=== PATIENT | female | born 1955 | race African-American/Black ===

== ENCOUNTER 2017-03-11 00:24 | Emergency (ER) | payer OTHER ==
[~2017-03-11] VITALS: Ht 167.6 cm; Wt 72.6 kg
--- NOTE | 2017-03-11 00:30 | NUR ---
BB RA FROM [address] GOLD MANNOR; EPIGASTRIC, SHARP LIKE PAIN, NON RADIATING. TP AMBULATED TO ER BED, SKIN WARM AND DRY, RR EVEN AND UNLABORED. AWAITING ORDERS FROM PROVIDER
[2017-03-11] MEDS ORDERED: ONDANSETRON HCL/PF 4 MG/2 ML VIAL IVP ONE (01:00)
[2017-03-11] MEDS ORDERED: MORPHINE SULFATE INJ 2 MG/ML DISP.SYRIN IV ONE (01:00)
--- NOTE | 2017-03-11 01:00 | NUR ---
DISTILLERY SUPERVISOR AT BED SIDE FOR BLOOD DRAW
[2017-03-11 01:11] LABS: BASOPHILS % (AUTO) 0.5 % (0.0-2.0); EOSINOPHILS # (AUTO) 0.1 /CMM (0.0-0.7); EOSINOPHILS % (AUTO) 0.8 % (0.0-6.0); HEMATOCRIT 51 % (33-45); LYMPHOCYTES # (AUTO) 2.7 /CMM (0.8-4.8); LYMPHOCYTES % (AUTO) 37.3 % (20.0-44.0); MEAN CORPUSCULAR HEMOGLOBIN 32 PG (26.0-33.0); MEAN CORPUSCULAR HGB CONC 34 g/dl (31.0-36.0); MEAN CORPUSCULAR VOLUME 95 fL (82-100); MONOCYTES # (AUTO) 0.5 /CMM (0.1-1.30); MONOCYTES % (AUTO) 6.6 % (2.0-12.0); NEUTROPHILS # (AUTO) 3.9 /CMM (1.8-8.9); NEUTROPHILS % (AUTO) 54.8 % (43.0-81.0); PLATELET COUNT (AUTO) 203 /CMM (150-450); RED BLOOD CELL COUNT(AUTO) 5.35 MIL/uL (4.0-5.2); WHITE BLOOD COUNT (AUTO) 7.2 K/uL (4.3-11.0)
[2017-03-11 01:21] LABS: CALCIUM, SERUM 9.2 mg/dL (8.5-10.1); CREATININE 0.8 mg/dL (0.6-1.3); POTASSIUM 3.9 mmol/L (3.5-5.1)
[2017-03-11] MEDS ORDERED: MORPHINE SULFATE INJ 2 MG/ML DISP.SYRIN ONE (01:25)
[2017-03-11 01:27] LABS: INR 1.04 (0.87-1.13); PROTHROMBIN TIME 11.1 SECS (9.5-12.7)
[2017-03-11] MEDS ORDERED: MORPHINE SULFATE INJ 4 MG/ML DISP.SYRIN ONE (01:27)
[2017-03-11 01:30] LABS: ALBUMIN 3.4 g/dL (3.4-5.0); BILIRUBIN,DIRECT 0.1 mg/dL (0.0-0.2); BILIRUBIN,TOTAL 0.3 mg/dL (0.2-1.0); TOTAL PROTEIN, SERUM 7.6 g/dL (6.4-8.2)
[2017-03-11] MEDS ORDERED: IV NS 0.9% 250 ML IV ONE (02:01)
[2017-03-11] MEDS ORDERED: IOHEXOL-350 100 ML VIAL IV ONE (02:01)
[2017-03-11] MEDS ORDERED: ONDANSETRON HCL/PF 4 MG/2 ML VIAL ONE (02:14)
--- NOTE | 2017-03-11 02:30 | NUR ---
PT TRANASPORTED TO CT VIA GURNEY BY RADIOLOGY
--- NOTE | 2017-03-11 04:07 | NUR ---
called facility, spoke with johanne
[2017-03-11 04:43] VITALS: BP 133/87
== END 2017-03-11 04:43 | disposition home or self-care (01) ==
LOC: ER 00:25
DX: R10.13 Epigastric pain (principal); F29 Unspecified psychosis not due to a substance or known physiological condition; F32.9 Major depressive disorder, single episode, unspecified; Z88.0 Allergy status to penicillin; Z90.49 Acquired absence of other specified parts of digestive tract
CPT/HCPCS: 36415; 80048-TC; 80076-TC; 83690-TC; 85025-TC; 85730-TC; A4606; J2270; J2405; J7030; J7050; Q9967; Z7610

== ENCOUNTER 2019-08-12 11:04 | Inpatient (IN) | payer MEDICARE, OTHER ==
[~2019-08-12] VITALS: Ht 167.6 cm; Wt 76.2 kg
--- NOTE | 2019-08-12 11:24 | NUR ---
BIB [facility] AMBULANCE TO ER, C/O SOB - SHE IS FROM [facility]. RA SATS -90 %; 96 % ON NC-3 LPM. PT HAS DIFFICULTY SPEAKING A RESULT. NO APPARENT DISTRESS. DENIES PAIN, DIZZINESS, WEAKNESS. ON MONITOR AND READY FOR EVAL.
[2019-08-12] MEDS ORDERED: IV NS 0.9% 1,000 ML BAG IV ONE ×2 (11:30→13:00)
--- NOTE | 2019-08-12 11:54 | NUR ---
PT TAKEN TO RADIOLOGY VIA IVAN
--- NOTE | 2019-08-12 12:03 | NUR ---
BACK FROM RADIOLOGY. CARY REID.
[2019-08-12 12:24] LABS: BASOPHILS % (AUTO) 0.5 % (0.0-2.0); HEMATOCRIT 51 % (33-45); HEMOGLOBIN 16.3 g/dL (11.5-14.8); LYMPHOCYTES # (AUTO) 0.9 /CMM (0.8-4.8); LYMPHOCYTES % (AUTO) 18.1 % (20.0-44.0); MEAN CORPUSCULAR HGB CONC 32 g/dl (31.0-36.0); MEAN CORPUSCULAR VOLUME 101 fL (82-100); MONOCYTES # (AUTO) 0.5 /CMM (0.1-1.30); MONOCYTES % (AUTO) 9.2 % (2.0-12.0); NEUTROPHILS # (AUTO) 3.6 /CMM (1.8-8.9); NEUTROPHILS % (AUTO) 72.2 % (43.0-81.0); PLATELET COUNT (AUTO) 233 /CMM (150-450); RED BLOOD CELL COUNT(AUTO) 5.06 MIL/uL (4.0-5.2); WHITE BLOOD COUNT (AUTO) 4.9 K/uL (4.3-11.0)
--- NOTE | 2019-08-12 12:30 | NUR ---
URINE COLLECTED VIA STRAIGHT CATH PER PROTOCOL AND SENT TO STAT LAB. PT CARY WELL
[2019-08-12 12:36] LABS: CALCIUM, SERUM 10.4 mg/dL (8.5-10.1); CARBON DIOXIDE 15 mmol/L (21-32); CHLORIDE 85 mmol/L (98-107); CREATININE 1.9 mg/dL (0.6-1.3); POTASSIUM 5.1 mmol/L (3.5-5.1); SALICYLATE 12.4 mg/dL (2.8-20.0); SODIUM SERUM 130 mmol/L (136-145); UREA NITROGEN, BLOOD 20 mg/dL (7-18)
[2019-08-12 12:37] LABS: ACETAMINOPHEN 0 ug/ml (10-30); ALCOHOL, BLOOD < 3 mg/dL (0-0)
[2019-08-12 12:40] LABS: APPEARANCE,URINE Clear (CLEAR); BILIRUBIN,URINE SMALL (NEGATIVE); BLOOD, URINE Trace-lysed Ery/uL (NEGATIVE); COLOR,URINE Yellow (YELLOW); KETONES,URINE >=160 (NEGATIVE); LEUKOCYTE ESTERASE ,URINE Negative (NEGATIVE); NITRITE, URINE Negative (NEGATIVE); PROTEIN,URINE Negative (NEGATIVE); UGLUCOSE 500 MG/DL mg/dL (NEGATIVE); UROBILINOGEN,URINE 0.2 EU/dL (0.2)
[2019-08-12 12:43] LABS: BACTERIA,URINE Few /HPF (None Seen); SQUAMOUS EPITHELIAL CELL,UR Few /HPF (None Seen)
[2019-08-12 12:44] LABS: URINE AMORPHOUS URATE Few /HPF (None Seen)
[2019-08-12 12:47] LABS: SERUM AMMONIA 14 umol/L (11-32)
[2019-08-12 12:50] LABS: ALANINE AMINOTRANSFERASE 19 U/L (12-78); ALBUMIN 3.5 g/dL (3.4-5.0); ALKALINE PHOSPHATASE 197 U/L (46-116); ASPARTATE AMINOTRANSFERASE 11 U/L (15-37); B-TYPE NATRIURETIC PEPTIDE 72 PG/ML (0-125); BILIRUBIN,DIRECT 0.3 mg/dL (0.0-0.2); BILIRUBIN,TOTAL 0.9 mg/dL (0.2-1.0); TOTAL PROTEIN, SERUM 8.7 g/dL (6.4-8.2)
[2019-08-12] MEDS ORDERED: RISP0.2515 PO (12:56)
[2019-08-12] MEDS ORDERED: MONT10TA22 PO (12:56)
[2019-08-12] MEDS ORDERED: ATOR40TA PO (12:56)
[2019-08-12] MEDS ORDERED: DIVA-78 PO (12:56)
[2019-08-12] MEDS ORDERED: CELE-85 PO (12:56)
[2019-08-12] MEDS ORDERED: OLAN15TA3 PO (12:56)
[2019-08-12] MEDS ORDERED: GABA-532 PO (12:56)
[2019-08-12] MEDS ORDERED: ESCI10TA PO (12:56)
[2019-08-12] MEDS ORDERED: BUPR150T10 PO (12:56)
[2019-08-12] MEDS ORDERED: METF500T20 PO (12:56)
[2019-08-12] MEDS ORDERED: ASPI-1152 PO (12:56)
[2019-08-12] MEDS ORDERED: ERGO500014 PO (12:56)
[2019-08-12 12:57] LABS: GLUCOSE 974 mg/dL (74-106)
[2019-08-12] MEDS ORDERED: ACET-868 PO (12:57)
[2019-08-12] MEDS ORDERED: ALBU18HF2 IH (12:57)
[2019-08-12] MEDS ORDERED: DIPH50CA38 PO (12:57)
[2019-08-12] MEDS ORDERED: LORA-259 PO (12:58)
[2019-08-12] MEDS ORDERED: ZOLP5TAB8 PO (12:58)
[2019-08-12] MEDS ORDERED: HYDR-4384 PO (12:58)
[2019-08-12] MEDS ORDERED: INSULIN REGULAR, HUMAN 100 UNIT/ML 10 ML VIAL IV ONE (13:00)
--- NOTE | 2019-08-12 13:29 | NUR ---
PT REFUSED DRAWING OF BLOOD CULTURES. MD WHEAT
[2019-08-12] MEDS ORDERED: INSULIN REGULAR, HUMAN 100 UNIT/ML 10 ML VIAL ONE (13:33)
[2019-08-12 13:46] LABS: THYROID STIMULATING HORMONE 0.624 uIU/mL (0.358-3.74)
--- NOTE | 2019-08-12 13:52 | NUR ---
UPDATED STEPH PRINTING SALES REPRESENTATIVE. SHE WILL CALL BACK
--- NOTE | 2019-08-12 14:40 | NUR ---
IV PULLED OUT FROM PT, PT UNABLE TO TELL WHAT HAPPENED. RE-INSERTED NEW IV. PT CARY WELL.
[2019-08-12] MEDS ORDERED: ZOLPIDEM TARTRATE 5 MG TABLET PO PRN (16:00)
[2019-08-12] MEDS ORDERED: HYDROCODONE/APAP 5/325MG 1 EACH TABLET PO PRN (16:00)
[2019-08-12] MEDS ORDERED: ACETAMINOPHEN 325 MG TABLET PO PRN (16:00)
[2019-08-12] MEDS ORDERED: diphenhydrAMINE HCL 50 MG CAPSULE PO PRN (16:00)
[2019-08-12] MEDS ORDERED: LORAZEPAM 1 MG TABLET PO PRN (16:00)
[2019-08-12] MEDS ORDERED: *INSULIN REGULAR(HUMULIN R)HUM 100 UNIT/ML VIAL SQ PRN (16:30)
[2019-08-12] MEDS ORDERED: DEXTROSE 50%-WATER 50 ML DISP.SYRIN IV PRN (16:30)
--- NOTE | 2019-08-12 16:44 | NUR ---
Patient is resting comfortably in bed with eyes closed. Easily aroused. VSS
--- NOTE | 2019-08-12 18:00 | NUR ---
PT SLEEPING COMFORTABLY IN BED. NO COMPLAINTS AT THIS TIME. VSS. WILL CONT TO MONITOR.
--- NOTE | 2019-08-12 18:25 | NUR ---
PER ADMITTING [place] ASSISTANT NEWS DIRECTOR SAYS NO BEDS AVAILABLE, AUTH TO ADMIT PT UNDER DR CAREY
[2019-08-12] MEDS ORDERED: ALBUTEROL FS 2.5 MG/3 ML VIAL.NEB NEB PRN (19:30)
--- NOTE | 2019-08-12 19:47 | NUR ---
BED ASSIGNMENT 114-2
[2019-08-12 20:00] VITALS: BP 169/98
--- NOTE | 2019-08-12 20:27 | NUR ---
REPORT GIVEN TO HERMINIO RODRÍGUEZ FOR 114-2, CHERRY ADMITTING
--- NOTE | 2019-08-12 20:45 | NUR ---
RN NOE NOTES RECEIVED CALL FROM PHARMACY WITH INSTRUCTION THAT ITS OKAY TO GIVE ROCEPHIN WITH PRECAUTION EVEN THOUGH THE PT HAVE ALLERGY ON PENICILLIN AND WAS AWARE
--- NOTE | 2019-08-12 20:52 | NUR ---
PT TRANSFERRED TO UNIT PER [facility]
[2019-08-12] MEDS: INSULIN GLARGINE, 100 UNIT/ML CARTRIDGE SQ ONE ×2 (21:00→21:57)
--- NOTE | 2019-08-12 21:00 | NUR ---
RN NOE ADMISSION NOTES ADMITTED MS BARTOLO VILLAR FROM ER VIA [facility] AWAKE CONVERSING WITH A LITTLE CONFUSION NOTED ON O2 VIA NASAL CANNULA TOLERATED WELL WITH O2 SAT 97%, SAFELY TRANSFER FROM [facility] TO BED, V/S CHECKED WNL, HEAD TO TOE ASSESSMENT DONE WITH EXCORIATION ON ABDOMINAL FOLD NOTED, GENERALIZED DRYNESS NOTED, PERICARE AND BED BATH DONE BY CUTTER BARREL DRUM, NO PAIN NOTED, PT IS COOPERATIVE, NEEDS ATTENDED WILL CONT TO MONITOR
--- NOTE | 2019-08-12 21:25 | NUR ---
2124 DR CAREY MADE AWARE OF BS 539MG/DL WITH ORDER TO GIVE LANTUS 30 UNITS NOW AND TO START PATIENT ON DIABETIC DIET. PATIENT AWAKE, AND VERBALLY RESPONSIVE. NO SIGNS OF HYPERGLYCEMIA NOTED. ORDERS NOTED AND CARRIED OUT.
[2019-08-12] MEDS: ENOXAPARIN SODIUM 30 MG/0.3 ML DISP.SYRIN SQ SCH (21:55)
[2019-08-12] MEDS ORDERED: INSULIN GLARGINE, 100 UNIT/ML CARTRIDGE SQ SCH (22:00)
[2019-08-12] MEDS: IV 1/2NS 1000 ML 1,000 ML IV PRN (22:15)
[2019-08-12] MEDS: AZITHROMYCIN 500 MG in IV D5W 250 ML IV SCH (22:26)
[2019-08-12] MEDS: ATORVASTATIN 40 MG TABLET PO SCH (22:27)
[2019-08-12] MEDS: OLANZAPINE 5 MG TABLET PO SCH (22:27)
[2019-08-12] MEDS: BLOOD SUGAR DIAGNOSTIC 1 EACH STRIP VI SCH ×2 (23:04→23:05)
[2019-08-12] MEDS: CEFTRIAXONE 1 G in IV D5W 50 ML IV SCH (23:04)
[2019-08-12] MEDS: buPROPion SR 150 MG TABLET.ER PO SCH (23:08)
[2019-08-12] MEDS: risperiDONE 1 MG TABLET PO SCH (23:09)
[2019-08-12] MEDS: DIVALPROEX SODIUM 500 MG TABLET.DR PO SCH (23:10)
[2019-08-12] MEDS: GABAPENTIN 100 MG CAPSULE PO SCH (23:14)
--- NOTE | 2019-08-12 23:25 | NUR ---
RN NOE NOTES RECHECKED BLOOD SUGAR WITH [address] CAREY WITH ORDER NO GLUCOSE CHECKED TONIGHT AND LANTUS 30 UNITS SQ Q12
[2019-08-13] VITALS (9 sets, daily range): BP systolic 111–152; BP diastolic 63–92
[2019-08-13 07:28] LABS: BASOPHILS % (AUTO) 0.6 % (0.0-2.0); EOSINOPHILS % (AUTO) 0.1 % (0.0-6.0); HEMATOCRIT 45 % (33-45); HEMOGLOBIN 15.1 g/dL (11.5-14.8); LYMPHOCYTES % (AUTO) 21.1 % (20.0-44.0); MEAN CORPUSCULAR HGB CONC 33 g/dl (31.0-36.0); MEAN CORPUSCULAR VOLUME 95 fL (82-100); MONOCYTES # (AUTO) 0.6 /CMM (0.1-1.30); MONOCYTES % (AUTO) 12.4 % (2.0-12.0); NEUTROPHILS # (AUTO) 3.2 /CMM (1.8-8.9); NEUTROPHILS % (AUTO) 65.8 % (43.0-81.0); PLATELET COUNT (AUTO) 195 /CMM (150-450); RED BLOOD CELL COUNT(AUTO) 4.76 MIL/uL (4.0-5.2); WHITE BLOOD COUNT (AUTO) 4.9 K/uL (4.3-11.0)
--- NOTE | 2019-08-13 07:29 | NUR ---
SENIOR DIRECTOR MARKETING CLOSING NOTES PT ON STABLE CONDITION SLEEPING NO SIGN AND SYMPTOMS OF ANY DISTRESS ON O2 2L VIA NC, NO PAIN NOTED, ALL NEEDS ATTENDED ON TELE MONITOR READING SR 80'S-90'S SAFETY MEASURE MAINTAINED BED ON LOWEST POSITION SIDE RAILS UP X2 CALL LIGHT WITHIN REACH, WILL ENDORSED TO AM SHIFT NURSE
--- NOTE | 2019-08-13 07:35 | NUR ---
CAKE STRIPPER NOTE RECEIVED REPORT FROM PM NURSE.PATIENTAXOX4.NO SOB NO DISTRESS NOTED WITH O2.ON TELE MONITOR SR WITHBBB HR 76.SAFETY AND ASPIRATION MEASURES IN PLACE.WILL CONTINUE TO MONITOR.
[2019-08-13 07:37] LABS: CALCIUM, SERUM 8.5 mg/dL (8.5-10.1); CREATININE 1.5 mg/dL (0.6-1.3); MAGNESIUM 2.1 mg/dL (1.8-2.4); POTASSIUM 3.9 mmol/L (3.5-5.1)
[2019-08-13 07:51] LABS: THYROID STIMULATING HORMONE 0.598 uIU/mL (0.358-3.74)
[2019-08-13] MEDS: BLOOD SUGAR DIAGNOSTIC 1 EACH STRIP VI SCH ×4 (07:57→21:20)
[2019-08-13] MEDS: INSULIN REGULAR, HUMAN 100 UNIT/ML 3 ML VIAL SQ PRN ×4 (08:44→21:15)
[2019-08-13] MEDS: risperiDONE 1 MG TABLET PO SCH ×2 (08:48→16:23)
[2019-08-13] MEDS: buPROPion SR 150 MG TABLET.ER PO SCH ×2 (08:48→16:23)
[2019-08-13] MEDS: MONTELUKAST SODIUM (10MG) 10 MG TABLET PO SCH (08:48)
[2019-08-13] MEDS: INSULIN GLARGINE, 100 UNIT/ML CARTRIDGE SQ SCH ×2 (08:48→21:14)
[2019-08-13] MEDS: ESCITALOPRAM OXALATE (10 MG) 10 MG TABLET PO SCH (08:48)
[2019-08-13] MEDS: CELECOXIB 100 MG CAPSULE PO SCH (08:48)
[2019-08-13] MEDS: ASPIRIN EC 81 MG TABLET.DR PO SCH (08:48)
[2019-08-13] MEDS: DIVALPROEX SODIUM 500 MG TABLET.DR PO SCH ×2 (08:49→16:23)
[2019-08-13] MEDS: GABAPENTIN 100 MG CAPSULE PO SCH ×3 (08:49→16:23)
[2019-08-13] MEDS ORDERED: METFORMIN XR 500 MG TAB.SR.24H PO SCH (09:00)
[2019-08-13] MEDS: METFORMIN XR 500 MG TAB.SR.24H PO SCH ×2 (09:00→11:09)
[2019-08-13] MEDS ORDERED: ENOXAPARIN SODIUM 40 MG/0.4 ML DISP.SYRIN SQ SCH (09:00)
[2019-08-13] MEDS: IV 1/2NS 1000 ML 1,000 ML IV PRN ×2 (09:05→18:41)
[2019-08-13] MEDS ORDERED: INSULIN GLARGINE, 100 UNIT/ML CARTRIDGE SQ ONE (12:30)
--- NOTE | 2019-08-13 13:00 | NUR ---
CONDOMINIUM MANAGER NOTE GOT NEW ORDER FROM FOR 20 UNIT LANTUSX1 FOR BS 411.
--- NOTE | 2019-08-13 19:15 | NUR ---
HOUSING PROJECT MANAGER OPENING NOTES RECEIVED PT ON BED ASLEEP WITH O2 2L VIA NC SATURATING WELL, NO SIGN AND SYMPTOMS OF DISTRESS NO PAIN NOTED, WITH ONGOING IVF OF 1/2 NS VIA L ARM IV GAUGE 20 INFUSING WELL NO INFILTRATION OF SWELLING NOTED SAFETY MEASURE MAINTAINED BED ON LOWEST POSSIBLE POSITION, SIDE RAILS UP X3 CALL LIGHT WITHIN REACH WILL CONT. TO MONITOR THE PT
--- NOTE | 2019-08-13 19:42 | NUR ---
telecommunicator supervisor note endorsed to pm nurse for filemon.
[2019-08-13] MEDS: AZITHROMYCIN 500 MG in IV D5W 250 ML IV SCH (20:15)
[2019-08-13] MEDS: ENOXAPARIN SODIUM 30 MG/0.3 ML DISP.SYRIN SQ SCH (21:13)
[2019-08-13] MEDS: ATORVASTATIN 40 MG TABLET PO SCH (21:19)
[2019-08-13] MEDS: OLANZAPINE 5 MG TABLET PO SCH (21:19)
[2019-08-13] MEDS: CEFTRIAXONE 1 G in IV D5W 50 ML IV SCH (21:37)
[2019-08-14] VITALS: BP 104/72
[2019-08-14] MEDS: IV 1/2NS 1000 ML 1,000 ML IV PRN ×3 (03:00→20:27)
[2019-08-14 04:00] VITALS: BP 105/74
--- NOTE | 2019-08-14 07:15 | NUR ---
SORT SUPERVISOR CLOSING NOTES PT ON STABLE CONDITION AWAKE AND ORIENTED X 4 NO SIGN AND SYMPTOMS OF ANY DISTRESS ON O2 2L VIA NC, NO PAIN NOTED, ALL NEEDS ATTENDED ON TELE MONITOR READING SR 80'S-90'S SAFETY MEASURE MAINTAINED BED ON LOWEST POSITION SIDE RAILS UP X2 CALL LIGHT WITHIN REACH, WILL ENDORSED TO AM SHIFT NURSE
[2019-08-14 08:00] VITALS: BP_SYST 109; BP_SYST 119; BP_DIAS 68; BP_DIAS 77
--- NOTE | 2019-08-14 08:00 | NUR ---
business development professional Notes Received patient from manufacturing supervisor 2nd shift in bed. No acute events noted at this time. Patient is on Nasal Canula 2L, but self removes. Tolerates room air. Tele monitor sinus rhythm 80s and 90s. Patient wears a diaper. Last BS per manufacturing supervisor 2nd shift was 206. When rechecked per 729 order was 219. Bed in lowest position, call light within reach. All measures taken to ensure client safety. Spoke to son in AM, will be visiting in afternoon. Current plan of nursing care explained to son.
[2019-08-14] MEDS: BLOOD SUGAR DIAGNOSTIC 1 EACH STRIP VI SCH ×4 (08:20→21:13)
[2019-08-14] MEDS: INSULIN REGULAR, HUMAN 100 UNIT/ML 3 ML VIAL SQ PRN (08:41)
[2019-08-14] MEDS ORDERED: INSULIN GLARGINE, 100 UNIT/ML CARTRIDGE SQ SCH ×2 (09:00→21:00)
[2019-08-14] MEDS: ESCITALOPRAM OXALATE (10 MG) 10 MG TABLET PO SCH (09:02)
[2019-08-14] MEDS: CELECOXIB 100 MG CAPSULE PO SCH (09:03)
[2019-08-14] MEDS: DIVALPROEX SODIUM 500 MG TABLET.DR PO SCH ×2 (09:03→16:27)
[2019-08-14] MEDS: METFORMIN XR 500 MG TAB.SR.24H PO SCH (09:03)
[2019-08-14] MEDS: risperiDONE 1 MG TABLET PO SCH ×2 (09:03→16:28)
[2019-08-14] MEDS: GABAPENTIN 100 MG CAPSULE PO SCH ×3 (09:04→16:27)
[2019-08-14] MEDS: ASPIRIN EC 81 MG TABLET.DR PO SCH (09:04)
[2019-08-14] MEDS: buPROPion SR 150 MG TABLET.ER PO SCH ×2 (09:04→16:27)
[2019-08-14] MEDS: MONTELUKAST SODIUM (10MG) 10 MG TABLET PO SCH (09:04)
[2019-08-14 12:00] VITALS: BP 105/81
[2019-08-14] MEDS: INSULIN REGULAR, HUMAN 100 UNIT/ML 10 ML VIAL SQ SCH ×2 (12:27→18:09)
[2019-08-14 16:00] VITALS: BP 124/68
[2019-08-14 20:00] VITALS: BP 114/80
--- NOTE | 2019-08-14 20:04 | NUR ---
therapeutic consultant Closing Notes Patient is in bed resting comfortably. Ambulated from bed to chair in the room. Uses bedside commode. Patient is alert and oriented x2-3, though reports forgetfulness. No SOB noted. Sinus Rhythm 70s throughout shift. IV access RH 20g. Patent and flushing well. Ns 0.45% running at 125mL per hour. Small smear BM earlier in shift. Reports generalized aches and pains. Endorsed plan of care to night monitor and patient. Bed in lowest position, call light within reach, all measures taken to ensure client safety.
[2019-08-14] MEDS: AZITHROMYCIN 500 MG in IV D5W 250 ML IV SCH (20:20)
[2019-08-14] MEDS: ATORVASTATIN 40 MG TABLET PO SCH (21:20)
[2019-08-14] MEDS: OLANZAPINE 5 MG TABLET PO SCH (21:20)
[2019-08-14] MEDS: ENOXAPARIN SODIUM 30 MG/0.3 ML DISP.SYRIN SQ SCH (21:26)
--- NOTE | 2019-08-14 21:43 | NUR ---
TELE-1/EDUCATIONAL ASSISTANT PAGED DR. CAREY REGARDING PT BLOOD SUGAR 312 WITH NO REGULAR INSULIN COVERAGE. AWAITING REPLY. WILL CONTINUE TO MONITOR.
--- NOTE | 2019-08-14 21:46 | NUR ---
TELE-1/FLIGHT COMMUNICATIONS SPECIALIST NEW ORDER RECEIVED FOR LANTUS. NO ADDITIONAL REGULAR INSULIN REQUIRED PER DR. CAREY. WILL CONTINUE TO MONITOR.
[2019-08-14] MEDS: CEFTRIAXONE 1 G in IV D5W 50 ML IV SCH (22:05)
[2019-08-15] VITALS: BP 99/71
--- NOTE | 2019-08-15 02:47 | NUR ---
TELE-1/COATING SUPERVISOR PT EXTREMELY NONCOMPLIANT WITH SAFETY DIRECTIONS. PT WILL NOT STAY IN BED DESPITE HER OWN COMPLAINTS OF SHORTNESS OF BREATH. SHE KEEPS MOVING FROM CHAIR TO BED DESPITE SEVERAL ATTEMPTS TO EDUCATE HER. SHE STATES "SHE KNOWS MORE THAN ME". I HAVE EXPLAINED AT LENGTH THAT IF SHE IS SHORT OF BREATH THAT SHE SHOULD REMAIN IN BED AND KEEP HER OXYGEN ON. ROOSEVELT MAE AND MYSELF HAVE REPOSITIONED HER SEVERAL TIMES FROM CHAIR TO BED. SHE INSISTS ON CONSTANT MOVEMENT AND IS DISREGARDING ALL PT EDUCATION. PT IS STILL NONCOMPLIANT WITH SAFETY INSTRUCTIONS AND IS CURRENTLY SITTING ON A CHAIR AT HER BEDSIDE. WILL CONTINUE TO MONITOR.
--- NOTE | 2019-08-15 03:20 | NUR ---
TELE-1/PREMIUM REPRESENTATIVE I WAS CALLED TO PT'S ROOM BY PT'S ROOM MATE. PT WAS FOUND SITTING ON THE FLOOR. PT DENIES HITTING HEAD. I ASSISTED PT BACK TO BED. NURSING ROVING INSPECTOR RAAD NOTIFIED. DR. CAREY NOTIFIED AWAITING CALL BACK. INCIDENT REPORT FILED. PT BED IN LOWEST LOCKED POSITION. SIDE RAILS UP x3 BED ALARM SET. AND EXTENSIVE PT EDUCATION GIVEN AGAIN. WILL CONTINUE TO MONITOR.
[2019-08-15 04:00] VITALS: BP 128/83
[2019-08-15 07:32] LABS: BASOPHILS % (AUTO) 0.7 % (0.0-2.0); EOSINOPHILS % (AUTO) 1.2 % (0.0-6.0); HEMATOCRIT 43 % (33-45); HEMOGLOBIN 14.5 g/dL (11.5-14.8); LYMPHOCYTES % (AUTO) 32.3 % (20.0-44.0); MEAN CORPUSCULAR HGB CONC 34 g/dl (31.0-36.0); MEAN CORPUSCULAR VOLUME 94 fL (82-100); MONOCYTES # (AUTO) 0.4 /CMM (0.1-1.30); MONOCYTES % (AUTO) 13.9 % (2.0-12.0); NEUTROPHILS # (AUTO) 1.6 /CMM (1.8-8.9); NEUTROPHILS % (AUTO) 51.9 % (43.0-81.0); PLATELET COUNT (AUTO) 143 /CMM (150-450); RED BLOOD CELL COUNT(AUTO) 4.58 MIL/uL (4.0-5.2); WHITE BLOOD COUNT (AUTO) 3.1 K/uL (4.3-11.0)
[2019-08-15 07:39] LABS: CALCIUM, SERUM 8.7 mg/dL (8.5-10.1); CREATININE 0.8 mg/dL (0.6-1.3)
[2019-08-15 08:00] VITALS: BP 126/70
--- NOTE | 2019-08-15 08:00 | NUR ---
HTML DEVELOPER NOTE PATIENT IN BED , ON 3L NC, NO SOB NOTED AT THIS TIME , RESPIRATION EVEN UNLABORED , ON TELE MONITOR SR HR 99, RT HAND IV HL INTACT AND FLUSHED WELL, ON IVF ORDERED, BED IN LOWEST AND LOCKED POSITION , CALL LIGHT WITHIN REACH , PLAN OF CARE DISCUSSED WITH PATIENT
--- NOTE | 2019-08-15 08:30 | NUR ---
SALES AND MARKETING ASSISTANT NOTE DR CAREY AT BEDSIDE OK TO D\C TO SNF
[2019-08-15] MEDS ORDERED: INSU100V9 SQ (08:35)
[2019-08-15] MEDS ORDERED: Insulin Glargine,Hum SQ (08:35)
[2019-08-15] MEDS ORDERED: LEVO500T75 PO (08:35)
[2019-08-15] MEDS: CELECOXIB 100 MG CAPSULE PO SCH (08:57)
[2019-08-15] MEDS: ASPIRIN EC 81 MG TABLET.DR PO SCH (08:57)
[2019-08-15] MEDS: MONTELUKAST SODIUM (10MG) 10 MG TABLET PO SCH (08:57)
[2019-08-15] MEDS: DIVALPROEX SODIUM 500 MG TABLET.DR PO SCH ×2 (08:57→16:43)
[2019-08-15] MEDS: GABAPENTIN 100 MG CAPSULE PO SCH ×3 (08:57→16:43)
[2019-08-15] MEDS: ESCITALOPRAM OXALATE (10 MG) 10 MG TABLET PO SCH (08:57)
[2019-08-15] MEDS: METFORMIN XR 500 MG TAB.SR.24H PO SCH (08:57)
[2019-08-15] MEDS: BLOOD SUGAR DIAGNOSTIC 1 EACH STRIP VI SCH ×3 (08:57→17:52)
[2019-08-15] MEDS: risperiDONE 1 MG TABLET PO SCH ×2 (08:58→16:43)
[2019-08-15] MEDS ORDERED: INSULIN GLARGINE, 100 UNIT/ML CARTRIDGE SQ SCH (09:00)
[2019-08-15] MEDS: buPROPion SR 150 MG TABLET.ER PO SCH ×2 (09:02→16:42)
--- NOTE | 2019-08-15 10:00 | NUR ---
telephone betting clerk note [id number] with [facility] case manager about d\c to [facility] stated that will relay massage to [facility] case [facility] , will f\u
[2019-08-15] MEDS: POTASSIUM CHLORIDE 20 MEQ TAB.PRT.SR PO SCH ×3 (10:12→12:25)
--- NOTE | 2019-08-15 10:30 | NUR ---
MS RN NOTE SELWYN VILLAR AWARE THAT PATIENT WILL BE TRANSFER TO [facility] ,[facility] REPORT GIVEN TO VERITO
[2019-08-15] MEDS: INSULIN REGULAR, HUMAN 100 UNIT/ML 10 ML VIAL SQ SCH ×2 (12:29→17:47)
[2019-08-15] MEDS: IV 1/2NS 1000 ML 1,000 ML IV PRN (12:33)
--- NOTE | 2019-08-15 13:41 | NUR ---
follow up with sebastien buchanan still waiting for insurance ,dr. alexander made aware and nursing sup made aware.
--- NOTE | 2019-08-15 13:42 | NUR ---
still pending placement per cm .
--- NOTE | 2019-08-15 14:52 | NUR ---
ms rn note correctional case records supervisor talking with son about transfer to snf
--- NOTE | 2019-08-15 15:10 | NUR ---
MS RN NOTE PER AGRONOMY INTERNSHIP PATIENT WILL BE D\C TO [facility] , [facility] AGRONOMY INTERNSHIP SPOKE WITH SON ,
--- NOTE | 2019-08-15 15:56 | NUR ---
PER TELEGRAPH MECHANIC [facility] INSURANCE WILL ARRANGE TRANSPORTATION AND PLACEMENT.WILL CONTINUE TO FOLLOW UP.
[2019-08-15 16:00] VITALS: BP 107/74
--- NOTE | 2019-08-15 18:14 | NUR ---
ms rn note per briefcase [facility] ambulance will be arrived about 7 pm , report given to Brenna sutherland at [facility]
--- NOTE | 2019-08-15 18:36 | NUR ---
PER CM AMBULANCE PICKUP BETWEEN 7 TO 8 PM,ARRANGED BY INSURANCE,ENDORSED TO NIGHT RN FOR CONTINUITY OF DISCHARGE PROCESS.
--- NOTE | 2019-08-15 19:25 | NUR ---
ms rn [facility] arrived , report given , [facility]
--- NOTE | 2019-08-15 19:40 | NUR ---
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 -PATIENT LEFT IN STABLE CONDITON, NO SIGN OF RESPIRATORY DISTRESS, NO LABORED BREATHING, CONTINUE ON O2 AT 3L/MIN VIA NC GOING TO [facility] LEFT AT 9171 Addendum: 08/15/19 at 2006 by ED BLANC RN ADDITIONAL NOTES: CORRECTION OF TIME ITS 1929 NOT 9156
[2019-08-19] MEDS ORDERED: ERGOCALCIFEROL (VITAMIN D 2) 50,000 UNIT CAPSULE PO SCH (09:00)
== END 2019-08-15 19:40 | DRG 637 ==
LOC: ER 11:05 → TELE-TD 19:50 → TELE1 08-13 08:54 → MEDSG1 08-15 08:36
PROVIDERS: ADMIT Internal Medicine; ATTEND Internal Medicine
DX: E11.65 Type 2 diabetes mellitus with hyperglycemia (principal); J15.9 Unspecified bacterial pneumonia; N17.9 Acute kidney failure, unspecified; E87.2 Acidosis; J90 Pleural effusion, not elsewhere classified; E87.1 Hypo-osmolality and hyponatremia; N18.9 Chronic kidney disease, unspecified; F17.210 Nicotine dependence, cigarettes, uncomplicated; F32.9 Major depressive disorder, single episode, unspecified; G40.909 Epilepsy, unspecified, not intractable, without status epilepticus; E78.5 Hyperlipidemia, unspecified; Z79.84 Long term (current) use of oral hypoglycemic drugs; Z79.4 Long term (current) use of insulin
CPT/HCPCS: 36415; 70450-TC; 71045-TC; 80048-TC; 80076-TC; 80305; 81000-TC; 82140-TC; 82962-TC; 83605-TC; 83735-TC; 83880; 84443-TC; 84484-TC; 85025-TC; 85730-TC; 87040-TC; 87081-TC; 87086-TC; G0378; G0480; J0456; J0696; J1650; J1815; J3490; J7030; J7060